=== PATIENT | male | born 1995 | race American Indian/Alaskan Native ===

== ENCOUNTER 2019-05-01 12:15 | Emergency (ER) | payer SELFPAY ==
[2019-05-01 12:43] VITALS: BP 125/74
--- NOTE | 2019-05-01 12:46 | Event Note ---
ED Screening Note Date of service: 05/01/19 Time: 12:45 ED Screening Note: 23 y/o male comes in for rlq and right testicular pain for 3 days. Now has nausea. This initial assessment/diagnostic orders/clinical plan/treatment(s) is/are subject to change based on patients health status, clinical progression and re- assessment by fellow clinical providers in the ED. Further treatment and workup at subsequent clinical providers discretion. Patient/guardian urged not to elope from the ED as their condition may be serious if not clinically assessed and managed. Initial orders include:
[2019-05-01] MEDS ORDERED: ZOFRAN IV ONE (13:52)
[2019-05-01] MEDS ORDERED: NACL 0.9% 1000 ML 1,000 ML IV ONE (13:52)
[2019-05-01] MEDS ORDERED: MORPHINE IV ONE (13:52)
--- NOTE | 2019-05-01 13:56 | Emergency Department Report ---
ED Male HPI - General Chief complaint: Urogenital-Male Stated complaint: RT SIDE PAIN/VOMIT Time Seen by Provider: 05/01/19 13:30 Source: patient Mode of arrival: Ambulatory Limitations: No Limitations - History of Present Illness Initial comments: Patient is 23 years old male with no significant past medical history. Patient presented to the ER complaining of lower back pain and right testicular pain for the last 4 days. Patient stated that pain associated with nausea and vomiting. Patient denied any recent injury. No fever or chills. MD Complaint: testicle pain -: days(s) (4) - Related Data Previous Rx's Medication Instructions Recorded Last Taken Type Ketorolac [Toradol] 10 mg PO Q6H PRN #20 tablet 05/01/19 Unknown Rx Ondansetron [Zofran Odt] 4 mg PO Q8HR PRN #14 tab.rapdis 05/01/19 Unknown Rx traMADol [Ultram] 50 mg PO Q6HR PRN #14 tablet 05/01/19 Unknown Rx Allergies Allergy/AdvReac Type Severity Reaction Status Date / Time No Known Allergies Allergy Verified 05/01/19 15:01 ED Review of Systems ROS: Stated complaint: RT SIDE PAIN/VOMIT Other details as noted in HPI Comment: All other systems reviewed and negative Constitutional: denies: chills, fever Respiratory: denies: cough Cardiovascular: denies: chest pain Gastrointestinal: nausea, vomiting. denies: abdominal pain Musculoskeletal: back pain ED Past Medical Hx - Past Medical History Previous Medical History?: No - Surgical History Past Surgical History?: No Additional Surgical History: Leg sx - Social History Smoking Status: Never Smoker - Medications Home Medications: Home Medications Medication Instructions Recorded Confirmed Last Taken Type Ketorolac [Toradol] 10 mg PO Q6H PRN #20 tablet 05/01/19 Unknown Rx Ondansetron [Zofran Odt] 4 mg PO Q8HR PRN #14 tab.rapdis 05/01/19 Unknown Rx traMADol [Ultram] 50 mg PO Q6HR PRN #14 tablet 05/01/19 Unknown Rx ED Physical Exam - General Limitations: No Limitations General appearance: alert, in no apparent distress - Head Head exam: Present: atraumatic, normocephalic, normal inspection - Eye Eye exam: Present: normal appearance - ENT ENT exam: Present: mucous membranes dry - Neck Neck exam: Present: normal inspection, full ROM. Absent: tenderness, meningismus, lymphadenopathy, thyromegaly - Respiratory Respiratory exam: Present: normal lung sounds bilaterally - Cardiovascular Cardiovascular Exam: Present: regular rate, normal rhythm, normal heart sounds - GI/Abdominal GI/Abdominal exam: Present: soft, normal bowel sounds. Absent: distended, tenderness, guarding, rebound, rigid, organomegaly, mass, bruit, pulsatile mass - exam: Present: normal inspection, testicular tenderness. Absent: urethral discharge, scrotal swelling, vertical testicular lie - Extremities Exam Extremities exam: Present: normal inspection - Back Exam Back exam: Absent: tenderness, CVA tenderness (R), CVA tenderness (L), muscle spasm, paraspinal tenderness, vertebral tenderness - Neurological Exam Neurological exam: Present: alert, oriented X3 - Psychiatric Psychiatric exam: Present: normal mood - Skin Skin exam: Present: warm, intact, normal color ED Course Vital Signs 05/01/19 05/01/19 12:41 14:12 Temperature 98.4 F Pulse Rate 82 Respiratory 16 20 Rate Blood Pressure 125/74 O2 Sat by Pulse 100 Oximetry ED Medical Decision Making - Lab Data Result diagrams: 05/01/19 Unknown 05/01/19 Unknown - Radiology Data Radiology results: report reviewed - Medical Decision Making Patient is 23 years old male with no significant past medical history. Patient presented to the ER complaining of lower back pain and right testicular pain for the last 4 days. Patient stated that pain associated with nausea and vomiting. Patient denied any recent injury. No fever or chills. Patient received morphine, Toradol and Zofran. Patient stated that he is feeling much better. CT scan of the abdomen and pelvis showed a 5 mm obstructing stone in the right ureteropelvic junction. Patient does not want to wait for his testicular ultrasound report and he stated that he will come back for their report. Patient given a prescription of Toradol or tramadol and Zofran and advised to follow-up with the urologist in the next 2-3 days. Critical care attestation.: If time is entered above; I have spent that time in minutes in the direct care of this critically ill patient, excluding procedure time. ED Disposition Clinical Impression: Abdominal pain, Ureter colic Disposition: TO HOME OR SELFCARE Is pt being admited?: No Condition: Stable Instructions: Kidney Stones (ED), Renal Colic (ED) Prescriptions: Ketorolac [Toradol] 10 mg PO Q6H PRN #20 tablet PRN Reason: Pain traMADol [Ultram] 50 mg PO Q6HR PRN #14 tablet PRN Reason: Pain Ondansetron [Zofran Odt] 4 mg PO Q8HR PRN #14 tab.rapdis PRN Reason: Nausea And Vomiting [facility]Primary Care Provider[facility] - 3-5 Days HAMMAD GEORGE MD [Staff Physician] - 3-5 Days Forms: AMA Form
--- NOTE | 2019-05-01 14:16 | Cat Scan Report ---
CT abdomen pelvis wo con INDICATION / CLINICAL INFORMATION: rlq pain. TECHNIQUE: All CT scans at this location are performed using CT dose reduction for ALARA by means of automated e xposure control. COMPARISON: None available. FINDINGS: No acute disease is seen in either lower lung. ABDOMEN: The gallbladder, liver, spleen, pancreas and small bowel are normal. Right nephrolithiasis is noted. There is right hydronephrosis and dilatation of the right proximal ureter. An obstructing stone is id entified just distal to the right ureteropelvic junction measuring 5 mm. The left kidney is normal. No retroperitoneal adenopathy. Pelvis: No dependent fluid collections or acute findings. The appendix is normal. Skeletal structures are normal. IMPRESSION: 5 mm proximal right ureteral calculus. Right nephrolithiasis. Signer Name: Joel Holcomb MD Signed: 05/01/2019 2:12 PM Workstation Name: [id number]
[2019-05-01 14:23] LABS: Basophils % (Auto) 0.8 % (0.0-1.8); Eosinophils # (Auto) 0.1 K/mm3 (0.0-0.4); Hematocrit 43.6 % (35.5-45.6); Hemoglobin 15.2 gm/dl (11.8-15.2); Lymphocytes # (Auto) 1.6 K/mm3 (1.2-5.4); Lymphocytes % (Auto) 29.2 % (13.4-35.0); Mean Corpuscular HGB Conc 35 % (32-34); Mean Corpuscular Volume 99 fl (84-94); Monocytes # (Auto) 0.4 K/mm3 (0.0-0.8); Monocytes % (Auto) 7.8 % (0.0-7.3); Red Blood Count 4.39 M/mm3 (3.65-5.03); Red Cell Distribution Width 12.9 % (13.2-15.2)
[2019-05-01] MEDS ORDERED: REGLAN IV ONE (14:48)
[2019-05-01] MEDS ORDERED: TORADOL IV ONE (14:48)
[2019-05-01] MEDS ORDERED: REGLAN ONE (14:52)
[2019-05-01] MEDS ORDERED: TORADOL ONE (14:52)
[2019-05-01 15:06] LABS: Platelet Count 213 K/mm3 (140-440)
[2019-05-01 15:12] LABS: Alanine Aminotransferase 10 units/L (7-56); Albumin 5.1 g/dL (3.9-5); BUN/Creatinine Ratio 13; Blood Urea Nitrogen 12 mg/dL (9-20); Calcium 10.2 mg/dL (8.4-10.2); Hemolysis Index 56
--- NOTE | 2019-05-01 16:24 | Ultrasound Report ---
ULTRASOUND SCROTUM INDICATION: . Right testicular pain for 4 days COMPARISON None available. FINDINGS -- RIGHT TESTIS: Size: 3.1 x 4.7 x 1.9 cm. Echotexture: Normal. Color Doppler Flow: Normal. Lesions: None. EPIDIDYMIS: Size: Normal. Echotexture: Normal. Color Doppler Flow: Normal. Lesions: None. Hydrocele: None. Varicocele: None. Additional Findings: None. FINDINGS -- LEFT TESTIS: Size: 2.8 x 2.9 x 1.7 cm. Echotexture: Normal. Color Doppler Flow: Normal. Lesions: None. EPIDIDYMIS: Size: Normal. Echotexture: Normal. Color Doppler Flow: Normal. Lesions: None. Hydrocele: None. Varicocele: None. Additional Findings: None. IMPRESSION: 1. No sonographic abnormality of the scrotum. Signer Name: Harsh Torres MD Signed: 05/01/2019 2:03 PM Workstation Name: [id number]
== END 2019-05-01 16:08 | disposition home or self-care (01) ==
LOC: ED 12:15
DX: N23 Unspecified renal colic (principal); R10.9 Unspecified abdominal pain; Z98.890 Other specified postprocedural states; Z79.899 Other long term (current) drug therapy
CPT/HCPCS: 36415; 74176; 80053; 85025; 93975; 96361; 96374; 96375; 99284; J1885; J2270; J2405; J2765; J7030